=== PATIENT | male | born 1985 | race Caucasian/White ===

== ENCOUNTER 2019-08-15 17:00 | Outpatient (RCR) | payer OTHER, SELFPAY ==
--- NOTE | 2019-08-03 16:47 | HMH.PTOPEV ---
PT Outpatient Evaluation Rehab PT Outpatient Evaluation Start: 08/03/19 15:33 Freq: Status: Active Protocol: Document 08/03/19 16:07 PDESEROUX (Rec: 08/03/19 16:45 PDESEROUX [id number]) Electronically Signed By Charles Porras, PT 08/03/19 16:07 Outpatient Therapy Subjective History Subjective History Pt. is a 34 year old male who presents to outpatient PT for complaints of chronic w/ a subacute exacerbation of constant LB/ BLE(LLE>RLE) P! of insidous onset about 1 month ago. Pt. reports chronic history of LBP since 2004 after feeling a tingling pinch in his LB while holding up a cabinet at work. Pt. reports beginning to have symptoms into BLEs(LLE> RLE) to his knee about 1 month ago. Pt. also reports since that 1 month on two different occasions his BLEs gave out on him and fell to his knees. Recent diagnostic imaging negative per pt. report. Pt. also denies having injections for current pathology. Pt. also denies saddle parasthesia or bowel/ bladder incontinence. Pt. RTMD 08/24/19. Current medications include Diclofenac, Lipitor, Ibuprofen, and an anti- inflammatory(pt. unable to recall name at this time). PMH includes R shldr. RCR, L knee MCL repair, and Hypercholesterolemia. Chief Complaint Pain,Gives out/Unstable, Paresthesia Symptom Type Burning,Numbness,Tingling Symptoms Relieved By Heat,Ice Symptoms Aggravated By Sitting,Bending/Stooping, Physical Activity,Lifting Prior Functional Limitations None Current Functional Limitations Lifting,Sleeping,Sitting, Squatting,Recreation Activity, Bending/Stooping Symptom Description Constant and Continuous Level of pain today (0-10) 5 Pain scale - at its best (0-10) 1 Pain scale - at its worst (0-10) 7 Lumbopelvic E
== END 2019-09-14 13:40 | disposition home or self-care (01) ==
LOC: PT.CARL 17:00
PROVIDERS: Visit Provider Nurse Practitioner Family
DX: M54.42 Lumbago with sciatica, left side (principal); G89.29 Other chronic pain
CPT/HCPCS: 97010; 97014; 97110; 97140; 97163; G0283

== ENCOUNTER → 2020-05-27 13:50 | Outpatient (CLI) | payer BC, SELFPAY ==
--- NOTE | 2020-05-27 13:51 | CT_ITS ---
PROCEDURE: CT MASTOID W/O CLINICAL HISTORY: chronic left mastoiditis CHRONIC LEFT MASTOIDITIS COMPARISON: No exams were available for comparison TECHNIQUE: Axial images obtained with sagittal and coronal reformats. All CT scans at the facility use one or more dose reduction, viz: automated exposure control, ma/kV adjustment per patient size (including targeted exams where dose is matched to indication, i.e. head), or iterative reconstruction technique. FINDINGS: There is diffuse sclerosis the left mastoid region with very poor pneumatization of the mastoid sinus consistent with chronic mastoid inflammatory changes. There is no evidence cholesteatoma. The epitympanic region is pneumatized in eyes with some minimal mucosal thickening in this area. No air-fluid levels are apparent. The left middle ear ossicles have an unremarkable appearance. The left middle ear is aerated. No other significant anomalies are evident. IMPRESSION: Findings are compatible with chronic left mastoid sinusitis. No evidence of cholesteatoma. The left middle ear is well aerated. Dictated by: Wan Gomez MD 05/29/2020 12:16 Wan Gomez MD in [place] 05/29/2020 12:16
== END ==
PROVIDERS: PCP Internal Medicine Adolescent Medicine; Visit Provider Otolaryngology
DX: H70.12 Chronic mastoiditis, left ear (principal)
CPT/HCPCS: 70480; 70486

== ENCOUNTER → 2021-01-14 19:10 | Outpatient (CLI) | payer BC, SELFPAY ==
[2021-01-14 19:35] LABS: Basophils # 0.1 K/mm3 (0-0.2); Basophils % 0.8 % (0.1-2.0); Eosinophils # 0.3 K/mm3 (0.0-0.4); Eosinophils % 2.7 % (0.1-12.0); Hematocrit 46.8 % (42.0-52.0); Hemoglobin 15.3 g/dL (14.1-18.0); Lymphocytes # 3.2 K/mm3 (0.7-4.5); Mean Corpuscular HGB Conc 32.8 g/dL (31.8-35.4); Mean Corpuscular Hemoglobin 28.3 pg (27.0-31.2); Mean Corpuscular Volume 86.3 fl (80-94); Mean Platelet Volume 8.3 fl (7.4-10.4); Monocytes # 0.7 K/mm3 (0.1-1.0); Monocytes % 6.6 % (1.7-9.3); Neutrophils % 58.8 % (37.0-80.0); Platelet Count 288 K/mm3 (142-424); Red Blood Count 5.42 M/mm3 (4.60-6.20); Red Cell Distribution Width 12.3 % (11.5-17.5); White Blood Count 10.2 K/mm3 (4.8-10.8)
[2021-01-14 19:58] LABS: Alanine Aminotransferase 67 U/L (12-78); Albumin Level 4.5 g/dl (3.5-5.0); Albumin/Globulin Ratio 1.9 (1.1-1.8); Alkaline Phosphatase 72 U/L (38-126); Anion Gap 14.6 mEq/L (5-15); Aspartate Amino Transferase 38 U/L (17-59); Bilirubin,Total 0.9 mg/dl (0.2-1.3); Blood Urea Nitrogen 15 mg/dl (9-20); Calcium 9.2 mg/dl (8.4-10.2); Carbon Dioxide 25 mmol/L (22.0-30.0); Chloride 106 mmol/L (98-107); Estimated Glomerular Filt Rate 68 ml/min (>60); GFR (African American) 82 ML/MIN (>60); Globulin 2.4 g/dL (1.3-3.2); Glucose 78 mg/dl (74-100); Potassium 4.6 mmoL/L (3.5-5.1); Sodium 141 mmol/L (136-145); Total Protein,Serum 6.9 g/dl (6.3-8.2)
[2021-01-14 21:25] LABS: Free Thyroxine Index 3.7 ug/dL (5.93-13.13); T4 (Thyroxine) 11.3 ug/dl (5.53-11.0); Triiodothryronine (T3) Uptake 33 % (23.5-40.5)
[2021-01-14 21:39] LABS: Thyroid Stimulating Hormone 2.65 uIU/mL (0.465-4.68)
== END ==
PROVIDERS: Visit Provider Internal Medicine Adolescent Medicine
DX: E03.9 Hypothyroidism, unspecified (principal); E78.2 Mixed hyperlipidemia
CPT/HCPCS: 80053; 84436; 84443; 84479; 85025

== ENCOUNTER 2022-06-20 09:49 | Emergency (ER) | payer OTHER, SELFPAY ==
[2022-06-20 10:18] VITALS: BP 119/101; PULSE 85; RESP 17; TEMP 36.8; O2SAT 99; BMI 33.7
--- NOTE | 2022-06-20 11:01 | EXP.UTC ---
Discharge Plan Disposition Patient Disposition: Home, Self-Care Condition: Good Prescriptions Prescriptions: New polymyxin B sulf-trimethoprim 10,000 unit- 1 mg/mL drops 1 drp ophthalmic (eye) Q3H 10 Days Qty: 10 0RF Rx Instructions: while awake; do not exceed 6 doses in 24 hours No Action levothyroxine 75 mcg tablet 75 mcg PO DAILY Referrals Follow up/Referrals: Yves Gooden MD [Primary Care Provider] - See instructions Activity Restrictions/Add. Instructions Additional Instructions/Restrictions: Call eye doctor on Wednesday for a follow up. Clinical Impressions Clinical Impression: Acute conjunctivitis of right eye Instructions Patient Instructions: DI for Conjunctivitis Discharge ED Provider: Lili Steiner [facility] General Stated complaint: sore right eye, swollen Mode of Arrival: Ambulatory Source of Information: Patient Limitations: No Limitations Time Seen by Provider: 06/20/22 11:03 Description of Symptoms (Recalled from Triage Doc. by RN): pt comes in with c/o right eye redness and drainage. symptoms ongoing for a few days HEENT Symptoms (Recalled from RN notes): Yes Resp Symptoms (Recalled from RN notes): No Skin Symptoms (Recalled from RN notes): No MS Symptoms (Recalled from RN notes): No Functional Status (Recalled from RN notes): n/a History of Present Illness Provider Complaint: Pt relates that he has had some right eye redness and drainage. He uses saline drop OTC daily to dry up an area behind his cornea in that eye and is concerned about drops for his eye. He reports that he will be seeing his eye doctor next week. Related Data Home Medications Medication Instructions Recorded Confirmed levothyroxine 75 mcg tablet 75 mcg PO DAILY 05/13/20 06/03/20 Previous Rx's Medication Instructions Recorded polymyxin B sulfate 10,000 1 drp ophthalmic (eye) Q3H 10 days 06/20/22 unit-trimethoprim 1 mg/mL eye drops #10 mL Allergies Allergy/AdvReac Type Severity Reaction Status Date / Time No Known Allergies Allergy Verified 06/20/22 10:21 Worker's Comp Is this a Worker's Comp case?: No [facility] Disclaimer: The information contained in this section may have been updated after the patient was seen, as this information can be updated by other users. Social History Smoking Status: Never smoker alcohol intake: never substance use type: denies use current occupational status: employed Travel in the last 8 weeks: None ROS Obtained: Yes All systems reviewed & no additional complaints except as documented Constitutional Constitutional: Reports system reviewed and no additional complaints, except as documented Eyes Eyes: Reports irritation and Reports sensitivity to light ENT Ears, Nose, Mouth, and Throat: Reports system reviewed and no additional complaints, except as documented Cardiovascular Cardiovascular: Reports system reviewed and no additional complaints, except as documented Respiratory Respiratory: Reports system reviewed and no additional complaints, except as documented Gastrointestinal Gastrointestingal: Reports system reviewed and no additional complaints, except as documented Genitourinary Male Genitourinary: Reports system reviewed and no additional complaints, except as documented Musculoskeletal Musculoskeletal: Reports system reviewed and no additional complaints, except as documented Integumentary/Breasts Skin/Breast: Reports system reviewed and no additional complaints, except as documented Neurologic Neurologic: Reports system reviewed and no additional complaints, except as documented Endocrine Endocrine: Reports system reviewed and no additional complaints, except as documented Hematologic/Lymphatic Henatologic/Lymphatic: Reports system reviewed and no additional complaints, except as documented Allergic/Immunologic Allergic/Immunologic: Reports system reviewed and no additional complaints, except as documented Physical Ex
[2022-06-20 11:15] VITALS: BP 119/101; PULSE 85; RESP 17; TEMP 36.8
== END 2022-06-20 11:15 | disposition home or self-care (01) ==
PROVIDERS: Emergency Provider Nurse Practitioner Family; PCP Internal Medicine Adolescent Medicine
DX: H10.31 Unspecified acute conjunctivitis, right eye (principal)
CPT/HCPCS: 99212; G0463

== ENCOUNTER 2025-06-29 14:36 | Outpatient (CLI) | payer BC, SELFPAY ==
--- OUTSIDE RECORDS SUMMARY | 2025-06-25 06:43 | XMS_ITS | Continuity of Care Document ---
Author Organization [facility] Phone Care Team Providers Care Chief Cook Name Role Phone BETTY CHOI Unavailable [phone] BETTY CHOI Primary Attending BETTY CHOI Primary Care BETTY CHOI Admitting ALLERGIES AND ADVERSE REACTIONS ALLERGIES AND ADVERSE REACTIONS Code System Allergy Substance Adverse Reaction Date Reaction (Severity) Comment Status Reported By Updated By No Known Allergies [id number] on August 20, 2024 5:35:09 PM [facility] FAMILY HISTORY RELATION: Father Status: Cause of : Cerebrovascular accident Age at : Unknown SNOMED-CT Diagnosis Age At Onset [id number] Heart disease RELATION: Mother Status: LIVING SNOMED-CT Diagnosis Age At Onset Information not available RESULTS Patient: SHALINI Broderick Date of : 1985 LABORATORY RESULTS ORDER 200: CBC AUTO W DIFF ( LOINC: 07404-4) ORDER DATE: June 22, 2025 3:26:00 PM [facility] Specimen Source: Whole Blood Specimen Type: Whole blood s ample PERFORMING LAB: [address] [id number] Result Comment: Final Result Date: June 22, 2025 3:46:00 PM [facility] (TECH: KS) LOINC TEST FLAG RESULT REFERENCE RANGE UPDA MABEL BY 6690-2 Leukocytes [#/volume] in Blood by Automated count N 8.1 10^3/uL 4.5 10^3/uL - 11.5 10^3/uL June 22, 2025 3:46:00 PM UTC (TECH: O'ol Blue) 789-8 Erythrocytes [#/volume] in Blood by Automated count N 5.53 10^6/uL 4.25 10^6/uL - 5.57 10^6/uL June 22, 2025 3:46:00 PM UTC (TECH: O'ol Blue) 718-7 Hemoglobin [Mass/volume] in Blood N 16.0 g/dL 13.5 g/dL - 17.2 g/dL June 22, 2025 3:46:00 PM UTC (TECH: O'ol Blue) 61424-9 Hematocrit [Volume Fraction] of Blood N 46.1 % 42.0 % - 52.0 % June 22, 2025 3:46:00 PM UTC (TECH: O'ol Blue) 787-2 Erythrocyte mean corpuscular volume [Entitic volume] by Automated count N 83.4 fl 80 fl - 95 fl June 22, 2025 3:46:00 PM UTC (TECH: O'ol Blue) 79194-7 Erythrocyte mean corpuscular hemoglobin [Entitic mass] in Blood from Fetus by Automated count N 28.9 pg 27.0 pg - 34.0 pg June 22, 2025 3:46:00 PM UTC (TECH: O'ol Blue) 27630-4 Erythrocyte mean corpuscular hemoglobin concentration [Mass/volume] in Blood from Fetus by Automated count N 34.7 g/dL 32.0 g/dL - 36.0 g/dL June 22, 2025 3:46:00 PM UTC (TECH: O'ol Blue) 83941-7 Platelets [#/volume] in Blood N 256 10^3/uL 150 10^3/uL - 450 10^3/uL June 22, 2025 3:46:00 PM UTC (TECH: O'ol Blue) 90112-8 Erythrocyte distribution width [Ratio] L 12.0 % 12.3 % - 15.1 % June 22, 2025 3:46:00 PM UTC (TECH: O'ol Blue) 13180-1 Platelet mean volume [Entitic volume] in Blood by Automated count N 9.0 fl 7.4 fl - 10.4 fl June 22, 2025 3:46:00 PM UTC (TECH: O'ol Blue) 89976-7 Granulocytes/100 leukocytes in Blood by Automated count N 53.6 % 40 % - 75 % June 22, 2025 3:46:00 PM UTC (TECH: KSM) 736-9 Lymphocytes/100 leukocytes in Blood by Automated count N 32.9 % 15 % - 57 % June 22, 2025 3:46:00 PM UTC (TECH: KSM) 5905-5 Monocytes/100 leukocytes in Blood by Automated count N 9.7 % 4.0 % - 12.0 % June 22, 2025 3:46:00 PM UTC (TECH: KSM) 713-8 Eosinophils/100 leukocytes in Blood by Automated count N 3.0 % 0.0 % - 4.0 % June 22, 2025 3:46:00 PM UTC (TECH: KSM) 706-2 Basophils/100 leukocytes in Blood by Automated count N 0.7 % 0.0 % - 1.0 % June 22, 2025 3:46:00 PM UTC (TECH: O'ol Blue) 40815-4 Immature granulocytes [#/volume] in Blood N 0.1 % 0.0 % - 0.8 % June 22, 2025 3:46:00 PM UTC (TECH: KSM) 14868-7 Granulocytes [#/volume] in Blood by Automated count N 4.33 10^3/uL June 22, 2025 3:46:00 PM UTC (TECH: KSM) 731-0 Lymphocytes [#/volume] in Blood by Automated count N 2.66 10^3/uL June 22, 2025 3:46:00 PM UTC (TECH: KSM) 742-7 Monocytes [#/volume] in Blood by Automated count N 0.78 10^3/uL June 22, 2025 3:46:00 PM UTC (TECH: KSM) 711-2 Eosinophils [#/volume] in Blood by Automated count N 0.24 10^3/uL June 22, 2025 3:46:00 PM UTC (TECH: KSM) 704-7 Basophils [#/volume] in Blood by Automated count N 0.06 10^3/uL June 22, 2025 3:46:00 PM UTC (TECH: O'ol Blue) 48171-9 Immature granulocytes [#/volume] in Blood N 0.01 10^3/uL June 22, 2025 3:46:00 PM UTC (TECH: KSM) 42744-2 Manual differential performed [Presence] in Blood N NO June 22, 2025 3:46:00 PM UTC (TECH: KSM) ORDER 300: HEMOGLOBIN A1C (L OINC: 4548-4) ORDER DATE: June 22, 2025 3:26:00 PM UTC Specimen Source: Whole Blood Specimen Type: Whole blood s ample PERFORMING LAB: [address] [id number] Result Comment: Final Result Date: June 22, 2025 3:54:00 PM UTC (TECH: LT) LOINC TEST FLAG RESULT REFERENCE RANGE UPDA MABEL BY 4548-4 Hemoglobin A1c/Hemoglobin.tot al in Blood N 5.8 % 4.5 % - 6.2 % June 22, 2025 3:54:00 PM UTC (TECH: LT) 38053-6 Glucose mean value [Mass/volume] in Blood Estimated from glycated hemoglobin N 120 mg/dl 82 mg/dl - 131 mg/dl June 22, 2025 3:54:00 PM UTC (TECH: LT) ORDER 400: THYROID STIMULATI NG HORMONE (LOINC: 3016-3) ORDER DATE: June 22, 2025 3:26:00 PM UTC Specimen Source: Serum/Plasm a Specimen Type: Acellular blo od (serum or plasma) specimen PERFORMING LAB: [address] [id number] Result Comment: Final Result Date: June 22, 2025 4:35:00 PM UTC (TECH: KSM) LOINC TEST FLAG RESULT REFERENCE RANGE UPDA MABEL BY 3016-3 Thyrotropin [Units/volume] in Serum or Plasma H 5.24 mIU/mL 0.34 mIU/mL - 4.80 mIU/mL June 22, 2025 4:35:00 PM UTC (TECH: KSM) ORDER 500: T4 FREE (LOINC: 3 024-7) ORDER DATE: June 22, 2025 3:26:00 PM UTC Specimen Source: Serum/Plasm a Specimen Type: Acellular blo od (serum or plasma) specimen PERFORMING LAB: [address] [id number] Result Comment: Final Result Date: June 22, 2025 4:35:00 PM UTC (TECH: O'ol Blue) LOINC TEST FLAG RESULT REFERENCE RANGE UPDA MABEL BY 3024-7 Thyroxine (T4) free [Mass/volume] in Serum or Plasma N 1.08 ng/dl 0.76 ng/dl - 1.46 ng/dl June 22, 2025 4:35:00 PM [facility] (TECH: O'ol Blue) ORDER 600: COMP METABOLIC PA JOSE A (LOINC: 08416-1) ORDER DATE: June 22, 2025 3:26:00 PM [facility] Specimen Source: Serum/Plasm a Specimen Type: Acellular blo od (serum or plasma) specimen PERFORMING LAB: [address] [id number] Result Comment: Final Result Date: June 22, 2025 4:35:00 PM [facility] (TECH: O'ol Blue) LOINC TEST FLAG RESULT REFERENCE RANGE UPDA MABEL BY 2951-2 Sodium [Moles/volume ] in Serum or Plasma N 142 mmol/L 136 mmol/L - 145 mmol/L June 22, 2025 4:35:00 PM UTC (TECH: O'ol Blue) 2823-3 Potassium [Moles/volume] in Serum or Plasma N 4.5 mmol/L 3.5 mmol/L - 5.1 mmol/L June 22, 2025 4:35:00 PM [facility] (TECH: O'ol Blue) 2075-0 Chloride [Moles/volume] in Serum or Plasma N 107 mmol/L 98 mmol/L - 107 mmol/L June 22, 2025 4:35:00 PM UTC (TECH: O'ol Blue) 2027-9 Carbon dioxide, tota l [Moles/volume] in Serum or Plasma N 25 mmol/L 21 mmol/L - 32 mmol/L June 22, 2025 4:35:00 PM UTC (TECH: O'ol Blue) 57625-3 Anion gap 3 in Serum or Plasma N 10.0 June 22, 2025 4:35:00 PM UTC (TECH: O'ol Blue) 2345-7 Glucose [Mass/volume ] in Serum or Plasma N 104 mg/dL 70 mg/dL - 110 mg/dL June 22, 2025 4:35:00 PM UTC (TECH: O'ol Blue) 3094-0 Urea nitrogen [Mass/volume] in Serum or Plasma N 14 mg/dL 7 mg/dL - 18 mg/dL June 22, 2025 4:35:00 PM [facility] (TECH: O'ol Blue) 2160-0 Creatinine [Mass/volume] in Serum or Plasma N 1.0 mg/dL 0.8 mg/dL - 1.3 mg/dL June 22, 2025 4:35:00 PM [facility] (TECH: O'ol Blue) 3097-3 Urea nitrogen/Creatinine [Mass Ratio] in Serum or Plasma N 14.0 - June 22, 2025 4:35:00 PM [facility] (TECH: O'ol Blue) 68634-7 Glomerular filtratio n rate/1.73 sq M.predicted by Creatinine-based formula (MDRD) N 96 mL/min >60 June 22, 2025 4:35:00 PM [facility] (TECH: O'ol Blue) 91710-2 Osmolality of Serum or Plasma by calculated by sum of electrolytes N 296 mosm/kg 275 mosm/kg - 301 mosm/kg June 22, 2025 4:35:00 PM [facility] (TECH: O'ol Blue) 2885-2 Protein [Mass/volume ] in Serum or Plasma N 7.1 g/dL 6.4 g/dL - 8.2 g/dL June 22, 2025 4:35:00 PM [facility] (TECH: O'ol Blue) 1751-7 Albumin [Mass/volume ] in Serum or Plasma N 4.1 g/dL 3.4 g/dL - 5.0 g/dL June 22, 2025 4:35:00 PM [facility] (TECH: O'ol Blue) 76512-2 Calcium [Mass/volume ] in Serum or Plasma N 9.1 mg/dL 8.5 mg/dL - 10.1 mg/dL June 22, 2025 4:35:00 PM [facility] (TECH: O'ol Blue) 03220-2 Calcium [Mass/volume ] corrected for total protein in Serum or Plasma N 9.0 mg/dL 8.5 mg/dL - 10.1 mg/dL June 22, 2025 4:35:00 PM [facility] (TECH: O'ol Blue) 1975-2 Bilirubin.total [Mass/volume] in Serum or Plasma N 1.0 mg/dL 0.4 mg/dL - 1.5 mg/dL June 22, 2025 4:35:00 PM UTC (TECH: KSGoodybag) 1920-8 Aspartate aminotransferase [Enzymatic activity/volume] in Serum or Plasma N 24 U/L 15 U/L - 37 U/L June 22, 2025 4:35:00 PM [facility] (TECH: KSM) 1742-6 Alanine aminotransferase [Enzymatic activity/volume] in Serum or Plasma N 64 U/L 12 U/L - 78 U/L June 22, 2025 4:35:00 PM [facility] (TECH: KSM) 6768-6 Alkaline phosphatase [Enzymatic activity/volume] in Serum or Plasma N 83 U/L 50 U/L - 170 U/L June 22, 2025 4:35:00 PM [facility] (TECH: KSM) ORDER 700: LIPID PANEL (LOIN C: 14921-3) ORDER DATE: June 22, 2025 3:26:00 PM [facility] Specimen Source: Serum/Plasm a Specimen Type: Acellular blo od (serum or plasma) specimen PERFORMING LAB: [address] [id number] Result Comment: Final Result Date: June 22, 2025 4:35:00 PM [facility] (TECH: KSM) LOINC TEST FLAG RESULT REFERENCE RANGE UPDA MABEL BY 2571-8 Triglyceride [Mass/volume] in Serum or Plasma N 69 mg/dL 20 mg/dL - 200 mg/dL June 4:35:00 PM [facility] (TECH: KSM) 2093-3 Cholesterol [Mass/volume] in Serum or Plasma N 127 mg/dL 0 mg/dL - 200 mg/dL June 22, 2025 4:35:00 PM [facility] (TECH: KSM) 2085-9 Cholesterol in HDL [Mass/volume] in Serum or Plasma L 32 mg/dL 60 mg/dL June 22 4:35:00 PM [facility] (TECH: KSM) 83998-4 Cholesterol in LDL [Mass/volume] in Serum or Plasma by calculation L 81 mg/dL 100 mg/dL June 22 4:35:00 PM [facility] (TECH: KSM) 2095-8 Cholesterol in HDL/Cholesterol.total [Mass Ratio] in Serum or Plasma N 4 - 5 June 22 4:35:00 PM [facility] (TECH: KSM) LABORATORY NARRATIVE RESULTS Information is not available RADIOLOGY RESULTS Information is not available PATHOLOGY NARRATIVE RESULTS Information is not available MICROBIOLOGY RESULTS No Micro Labs/Results Exist for Patient BLOOD ADMIN RESULTS Information is not available MEDICATIONS HOME MEDICATIONS Status RXNORM NDC Medication Dose Route Frequency Dates Comments Reported By Updated By Drug Treatment Unknown DISCHARGE MEDICATIONS Status RXNORM NDC Medication Dose Route Frequency Dates Dis pense Data Comments Physician Updated By No Discharge Medication Info rmation Available INPATIENT MEDICATIONS Status RXNORM NDC Medication Dose Route Frequency Rat e Quantity Dates Indication Dispense Data Comments Physician Updated By No Inpatient Medication Info rmation Available SOCIAL HISTORY SOCIAL HISTORY - Smoking Status SNOMED-CT Social History Element Description Effective Dates Offered Cessation Comment Updated By [id number] Historical Tobacco smoking status Never Smoked Yes [id number] on May 18, 2017 4:13:49 PM [facility] SOCIAL HISTORY - Gender Sex: Male SOCIAL HISTORY - Status : status i nformation is not available Intention in Next Year: intention information is not available SOCIAL HISTORY - Assessments Code System Description Status Date Value of Assessment Updated By Comment Assessment Information is no t available SOCIAL HISTORY - [place] Affiliation [place] information is not av ailable SOCIAL HISTORY - Legal Sex Legal Sex : Male (finding) SOCIAL HISTORY - Sexual Behavior Sexual Orientation Gender Identity SNOMED-CT Description SNO MED -CT Description Activity Level No of Partners Partner Type UpdatedBy Information is not available SOCIAL HISTORY - Occupation Occupation information is no t available ENCOUNTERS ENCOUNTER INFORMATION Reason for Visit Z00.00 Admission June 22, 2025 3:17:[address] [id number] Discharge June 22, 2025 3:17:00 PM [facility] DISCHARGED TO HOME OR SELF CARE ENCOUNTER DIAGNOSES Notes information is not jay ilable. Code System Diagnosis Onset Date Diagnosis information is not available. ABSTRACT DIAGNOSES Code System Diagnosis Updated By Abatement Date Z00. ICD10 ENCOUNTER FOR GE NERAL ADULT MEDICAL EXAMINATION WITHOUT ABNORMAL FINDINGS [id number] on June 25, 2025 11:43:29 AM [facility] E03.9 ICD10 HYPOTHYROIDISM, UNSPECIFIED [id number] on June 25, 2025 11:43:29 AM [facility] R73.03 ICD10 PREDIABETES [id number] on [facility]2024 11:43:29 AM [facility] Z00.00 ICD10 ENCOUNTER FOR GE NERAL ADULT MEDICAL EXAMINATION WITHOUT ABNORMAL FINDINGS [id number] on June 25, 2025 11:43:29 AM [facility] E03.9 ICD10 HYPOTHYROIDISM, UNSPECIFIED [id number] on June 25, 2025 11:43:29 AM [facility] R73.03 ICD10 PREDIABETES [id number] on Dece 2024 11:43:29 AM [facility] R42 ICD10 DIZZINESS AND GIDDINESS [id number] on June 25, 2025 11:43:29 AM [facility] CARE TEAM Care Chief Cook Role BETTY CHOI Referring BETTY CHOI Primary Attending BETTY CHOI Primary Care BETTY CHOI Admitting CARE TEAM CARE home restoration service supervisor Role on Team Location Telecom Status Start Date End Shon e Updated By SHANNON HERNÁNDEZ APRN PCP [facility], [place], [address] normal June 22, 2025 5:00:00 AM [facility] June 22, 2025 3:17:00 PM [facility] [id number] on June 22, 2025 3:19:12 PM [facility] SHANNON HERNÁNDEZ APRN Referring [address], [place], [address] normal June 22, 2025 5:00:00 AM [facility] June 22, 2025 3:17:00 PM [facility] [id number] on June 22, 2025 3:19:12 PM [facility] SHANNON HERNÁNDEZ APRN Attending [facility] [address], [place], [address] normal June 22, 2025 5:00:00 AM [facility] June 22, 2025 3:17:00 PM [facility] [id number] on June 22, 2025 3:19:12 PM [facility] SHANNON HERNÁNDEZ [employer] Admitting [address], [place], [address] normal June 22, 2025 5:00:00 AM [facility] June 22, 2025 3:17:00 PM [facility] [id number] on June 22, 2025 3:19:12 PM [facility] INSURANCE PROVIDERS INSURANCE PROVIDER Coverage Status - Effective Date Coverage Type Payor Plan Order Relationship To Subscriber Insurance Plan No Insurance Plan 2027-07-05 B PRIMARY 18 [phone] [place]
--- NOTE | 2025-06-29 | CA_ITS ---
APPROVED REPORT EXAM: Comprehensive 2D, Doppler, and color-flow Echocardiogram Reticle Printer: IVAN Ramirez, RVS Ht: 6 ft 0 in Wt: 250lbs BSA: 2.34 BP: 112/82 mmHg Indications: Tunnel vision with seizures Echo Enhancing Agent Indication: Rule Out Septal Defect Agent(s) / Amount(s) Used: Agitated Saline 20 cc Comments: 3phase bubble study=right to left shunt with sniff 2D Dimensions Left Atrium 3.95 cm LA Volume 60.80 mL LA Volume Index 25.30 mL/m2 (M/F) 16-34 M-Mode Dimensions RVDd 3.06 cm (0.9-2.6) LVDd 4.87 cm (3.5-5.7) LVDs 3.10 cm (3.5-5.7) IVSd 0.84 cm (0.6-1.1) PWd 1.09 cm (0.6-1.1) EF (Teich) 59.20% EPSs 0.48 cm FS 31.30% EDV (Teich) 92.90 mL TAPSE 2.65 (<1.7) ESV (Teich) 37.90 mL LV Diastology E Decel Time 210 (160-240 msec) E/A Ratio 1.49 MED A' 5.80 cm/s LAT A' 10.20 cm/s Aortic Valve INGE Index 1.46 cm2/m2 AoV Peak Husam. 111.0 (50-130 cm/s) AO Peak GR. 4.90 mmHg AO Mean GR. 2.40 (<5 mmHg) AO VTI 19.7 (18-25 cm) INGE (VTI) 3.51 (2.5-4.5 cm2) Mitral Valve MV A Velocity 39.0 (40-130 cm/s) E/A Ratio 1.49 Left Ventricle The left ventricle is normal size. Left ventricular systolic function is normal. The left ventricular ejection fraction is within the normal range. There is normal left ventricular wall thickness. There is normal LV segmental wall motion. The left ventricular diastolic function is normal. LVEF is 55% Right Ventricle The right ventricle is normal size. The right ventricular systolic function is normal. Atria The left atrium size is normal. The right atrium size is normal. There is no color Doppler evidence of interatrial shunt. Agitated saline administration demonstrates presence of interatrilal shunt (noted with Valsalva maneuver). Aortic Valve The aortic valve opens well. There is no hemodynamically significant aortic valvular stenosis. No aortic regurgitation is present. Mitral Valve The mitral valve is normal in structure. No evidence of mitral valve stenosis. Trace mitral regurgitation is present. Tricuspid Valve The tricuspid valve leaflets are thin and pliable. Trace tricuspid regurgitation. There is insufficient TR jet to estimate RVSP. Pulmonic Valve The pulmonary valve is grossly normal in structure. Trace pulmonic valve regurgitation is present. Great Vessels The aortic root is normal in size. IVC is normal in size and collapses >50% with inspiration. Pericardium There is no pericardial effusion. Other Information Study Quality: Fair Conclusion Normal biventricular size and systolic function. No significant valvular stenosis or regurgitation. Mild TR. Agitated saline administration demonstrates presence of interatrilal shunt (noted with Valsalva maneuver). In the setting of suspected symptoms, along with interatrial shunt on TTE, further evaluation with RAMIRO and cardiac MRI (shunt protocol) are suggested. Electronically signed by : Milly Angela MD 07/05/2025 13:34:46
--- OUTSIDE RECORDS SUMMARY | 2025-06-29 14:38 | XMS_ITS | Data Portability ---
Author Organization [facility] Address [address] [place] [address] Assessment Encounter Date Assessment Date Assessment LastModified by Organization Details LastModified Time 06/10/2020 06/10/2020 1. Otalgia of left ear - - Chronic; started about 5 years ago - 06/10/2020 H92.02: Otalgia, left ear 2. Left conductive hearing loss - - Mild high frequency hearing loss with type B on the left with 100% WDS - 06/10/2020 H90.12: Conductive hearing loss, unilateral, left ear, with unrestricted hearing on the contralateral side 3. Dysfunction of bilateral eustachian tubes - - Left > right - 06/10/2020 H69.93: Unspecified Eustachian tube disorder, bilateral 4. 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 Audiogram performed in office today - normal hearing on the right and mild high frequency conductive hearing loss on the left with type A tymp on the right and type B tymp on the left with 100% WDS bilaterally. 2. Reviewed CT scan of mastoid from 05/27/2020 and that showed chronic left mastoid sinusitis; no evidence of cholesteatoma. The left middle ear is well aerated. 3. Left myringotomy tube placement recommended. Full risks, complications, and benefits of operative versus non-operative intervention have been thoroughly discussed. Understanding was expressed, informed consent given, and we will proceed with the discussed operative treatment plan. There were no questions for me at the end of the office visit. 4. Follow up post operatively. Discussion Notes He has long-standing history of ear problems on the left side dating back years. He gets frequent ear infections where he gets episodic otalgia. He responds to treatment but then symptoms recur frequently. I reviewed his recent temporal bone CT which shows sclerosis of his left mastoid but no evidence of acute infection in the mastoid or middle ear. Exam shows scarring of his tympanic membrane and his tympanic membrane is also retracted on the left side. His audiometric testing shows a mild conductive hearing loss in that left ear and type B tympanogram. His history and symptoms are consistent with chronic eustachian tube dysfunction and his tympanogram and audiometric testing also fit with that diagnosis. He is never had a left ear tube placed and I recommend that we proceed with left ear tube placement under brief anesthesia as an outpatient. I am optimistic that ear tube placement will help with the least some of his chronic symptoms. His hearing may also improve Not available 08/02/2020 10:59:31 07/12/2020 07/12/2020 PREOPERATIVE DIAGNOSIS: Chronic serous otitis media and chronic eustachian tube dysfunction, left ear. POSTOPERATIVE DIAGNOSIS: Chronic serous otitis media and chronic eustachian tube dysfunction, left ear. PROCEDURE: Left tympanostomy and tube placement. ANESTHESIA: General. COMPLICATIONS: None. FINDINGS: Markedly retracted left tympanic membrane with sclerosis of the tympanic membrane. SURGEON: Marek Kathleen MD INDICATIONS: The patient is a 35-year-old with chronic left ear problems. The above recommended and informed consent obtained. OPERATIVE NOTE: The patient was brought to the operating room and after adequate general anesthesia, the left ear was draped in the usual sterile fashion. Operating microscope employed to visualize the tympanic membrane. An anterior-inferio r quadrant tympanostomy was made and suction employed to clear the middle ear space effusion. A T-tube was then placed. Otovel drops applied and the procedure concluded. All counts were correct. Blood loss minimal. The patient was sent to recovery room in stable condition. Return to Office MAREK KATHLEEN MD for POST-OP at [facility] on 07/29/2020 at 01:30 PM Not available 08/02/2020 11:04:32 07/29/2020 07/29/2020 1. Dysfunction of left eustachian tube - - retained ear tube (07/12/20) H69.92: Unspecified Eustachian tube disorder, left ear 2. Tinnitus of left ear H93.12: Tinnitus, left ear 3. Ear pressure sensation - - Improving H93.8X9: Other specified disorders of ear, unspecified ear 4. Otorrhea of left ear H92.12: Otorrhea, left ear 5. Acute left otitis media - - Resolving H66.92: Otitis media, unspecified, left ear ofloxacin 0.3 % ear drops - INSTILL 4-5 DROPS INTO AFFECTED EAR(S) BY OTIC ROUTE 2X DAILY FOR 10 DAYS Qty: 1 10 mL drop btl(s) Refills: 3 Pharmacy: [facility] Patient Instructions 1. RX-ofloxacin drops- 4 drops in the left ear bid x 10 days 2. Dry left ear precautions 3. F/u in 3 weeks- patient will need audiogram Discussion Notes He is status post left ear tube placement and his tube is in good position and functioning well and he is still having a little bit of purulent otorrhea through the patent ear tube. 10 more days of Floxin ear drops have been prescribed and I will see him back in follow-up. Once the chronic otitis media has resolved, we will repeat his hearing testing. I still anticipate that his chronic tinnitus and some of his hearing loss will resolve. Not available 08/02/2020 11:08:35 Plan of Treatment Reminders Order Date Submit Date Provider Last Modified By Organization Details Last Modified Time Details Appointments None record ed. Lab None record ed. Referral None record ed. Procedures None record ed. Surgeries None record ed. Imaging None record ed. Medication Orders None record ed. Patient TargetsNo targets recorded. Patient InstructionsNo instructions recorded. Reason for Referral None Reported. Results Created Date Observation Date Name Description Value Unit Range Abnormal Flag Note LastModifiedBy Organization Detail LastModifiedTime 08/02/1905/27/2020 imagi ng/lynda carvalho tic resul t No observ ation record ed. BARCODE Not Available 2020 09:43:00 08/02/19 21 06/10/2020 audio gram No observ ation record ed. BARCODE Not Available 2020 09:43:00 Result Notes None recorded. Medical Equipment None Reported. Allergies No known drug allergies Medications Name Sig Start Date Stop Date Status Note LastModified by Organization Details LastModified Time Prescripti on - New active date of prescript ion is 07/12/20 Not Available Not Available Not Available atorvastat in 20 mg tablet TAKE 1 TABLET BY MOUTH EVERY DAY active Not Available Not Available No t Available clindamyci n HCl 300 mg capsule active Not Available Not Available N ot Available levothyrox ine 100 mcg tablet TAKE 1 TABLET (100 MCG) EVERY MORNING ON AN EMPTY STOMACH active Not Available Not Available No t Available ofloxacin 0.3 % ear drops INSTILL 4-5 DROPS INTO AFFECTED EAR(S) TWICE DAILY FOR 10 DAYS active Not Available Not Available No t Available methylpred nisolone 4 mg tablets in a dose pack TAKE DIRECTED PER PACKAGE INSERT active Not Available Not Available No t Available amoxicilli n 875 mg-potassi um clavulanat e 125 mg tablet TAKE 1 TABLET BY MOUTH TWICE DAILY active Not Available Not Available No t Available neomycin-p olymyxin-h ydrocort 3.5 mg-10,000 unit/mL-1 % ear drops,susp 4 DROPS IN AFFECTED EAR(S) 3 OR 4 TIMES DAILY FOR 7 DAYS active Not Available Not Available No t Available Vitals None Recorded Social History None recorded. Functional Status None recorded. Mental Status None recorded. Family History Nothing Reported. Medical History No medical history recorded. Past Encounters Encounter ID Performer Location Encounter Start Date Encounter Closed Date Diagnosis/Indication Diagnosis SNOMED-CT Code Diagnosis ICD10 Code Diagnosis IMO Codes Diagnosis Note [id number] MD NEELIMA [facility] [address] [place] [address] 08/02/2020 10:53:07 09/29/2020 16:23:04 [id number] MAREK KATHLEEN MD SURGERY SCHEDULE [address] [place] [address] 08/02/2020 11:03:24 08/02/2020 11:04:48 [id number] MD NEELIMA [facility] [address] [place] [address] 08/02/2020 11:05:56 08/02/2020 12:52:49 Health Concerns Section Related Observation LastModified by Organization Detai ls LastModified Time None Recorded Concern Status LastModified by Organization Details LastModified Time None Recorded Advance Directives Directive None Recorded Payers Insurance Date Sequence Insurance Name Policy Number Policy [place] Covered Member ID [place] Member ID Guarantor Name 08/16/2020 1 [employer] [id number] 1 Cory Abrams [id number] Cory Abrams Notes Date Note Type Note Provider Name and Address Organization Details Recorded Time 06/10/2020 text/html Halima is a 35 year old who comes in today for consultation at the request of Dr. Yves Gooden for an evaluation of chronic ear pain. He reports about 5 years ago he started getting ear infections in his left ear. He has been treated with antibiotics and steroids with temporary relief. He saw Dr. Perez in [facility], [place]. He had a CT scan and was told that his bone is diffused and not honeycombed anymore and was told there is nothing can be done. Initially he started with swollen painful ears. He had one isolated episode of drainage out of his ear but just very painful. He denies any changes to his hearing even when his ear is bad and painful. He denies noticing any pain in his jaw/ teeth on that left side. MAREK KATHLEEN MD [address] [place] [address], [phone], [facility] 09/30/2020 13:57:23 07/29/2020 text/html Cory returns today in follow up of status post Left tympanostomy and tube placement from 07/12/20. He has had some drainage from the ear, and reports aural fullness and tinnitus in the left ear which seems to be improving. He denies otalgia. He has been using Ofloxacin antibiotic ear drops and keeping dry ear precautions as directed. Joan horton, [facility] 08/02/2020 11:08:44
== END 2025-06-29 23:59 | disposition home or self-care (01) ==
LOC: RT 14:37
PROVIDERS: PCP Nurse Practitioner Family; Visit Provider Nurse Practitioner Family
DX: I07.1 Rheumatic tricuspid insufficiency (principal); Q21.10 Atrial septal defect, unspecified; R55 Syncope and collapse; R42 Dizziness and giddiness; R40.4 Transient alteration of awareness; H53.40 Unspecified visual field defects; R56.9 Unspecified convulsions
CPT/HCPCS: 93306